=== PATIENT | female | born 1960 | race Caucasian/White ===

== ENCOUNTER → 2023-12-07 | Outpatient (CLI) | payer OTHER, MEDICARE ==
[2023-12-08 12:40] LABS: Stool Occult Bld Immuno 1 Negative (NEGATIVE)
== END ==
LOC: LAB SHORT 10:00 → LAB 10:00
PROVIDERS: Family Medicine
DX: Z12.11 Encounter for screening for malignant neoplasm of colon (principal)
CPT/HCPCS: G0328